=== PATIENT | male | born 1990 ===

== ENCOUNTER 2016-07-13 20:57 | Observation (INO) | payer OTHER ==
[2016-07-13] MEDS ORDERED: Sodium Chloride 0.9% 1,000 ML IV STA (21:32)
--- NOTE | 2016-07-13 21:52 | ED PDOC ---
HPI: CCC, URI, Sore Throat Chief Complaint (Provider): Nose Bleed History Per: Patient History/Exam Limitations: no limitations Have you had recent travel within the past 21 days to any of the following countries: [place], [place], [place] or [place]?: No Onset/Duration Of Symptoms: Mins (20 minutes before arrival) Current Symptoms Are (Timing): Still Present Location Of Pain: None Sick Contacts (Context): None Associated Symptoms: Vomiting, Diarrhea, Other (shortness of breath & Fatigue). denies: Fever, Chills, Sore Throat, Cough, Sputum, Neck Pain, Sinus Drainage, Myalgias, Nasal Congestion, Nausea <Omkar Cabrera - Last Filed: 07/13/16 23:04> <Dotty Vazquez - Last Filed: 07/14/16 18:57> Time Seen by Provider: 07/13/16 21:12 Chief Complaint (Nursing): ENT Problem Additional Complaint(s): 26 y.o. male with complaint of nose bleed occurring shortly before arrival to the E.D. PtDemarcus bahena was at working at the [employer] 20 minutes ago when his nose started bleeding suddenly from the right side. He then went to the bathroom to stop the bleeding and also noticed 1 episode of blood in the urine described as reddish urine. PtDemarcus bahena works at [employer] and was there at 11:00 this morning but did not feel well felt tired and left at 1:00 to go home and rest he then subsequently went back to work at 7:00pm but then again at approximately 9:00 p.m. felt tired and short of breath then subsequently had the episode of nose bleed. No previous episodes reported. Pt. denies any drug use. Pt. does admit to having one beer and 2 shots of whiskey today. Pt. denies any FMHx of bleeding disorders. (Omkar Cabrera) Supervising Attending Note <Omkar Cabrera - Last Filed: 07/13/16 23:04> - Supervising Attending Note The Documented history was done by the: Physician Diesel Powerplant Mechanic Helper, Attending Physician The documented physical exam was done by the: Physician Diesel Powerplant Mechanic Helper, Attending Physician - Attestation: I have personally seen and examined this patient.: Yes I have fully participated in the care of the patient.: Yes I have reviewed all pertinent clinical information, including history, physical exam and plan: Yes <Dotty Vazquez - Last Filed: 07/14/16 18:57> - Notes: Notes:: Chronic alcoholic with multiple sites of spontaneous bleeding, and deranged coags/LFTs. Also tremors and tachycardia c/w alcohol withdrawal. Pt will be hospitalized for further management. LEVI Gonzales. (Dotty Vazquez) Past Medical History - Medical History PMH: No Chronic Diseases - Surgical History Surgical History: No Surg Hx - Family History Family History: States: No Known Family Hx - Living Arrangements Living Arrangements: With Friends/Others (Roommate) - Social History Current smoker - smoking cessation education provided: No Alcohol: > 2 Drinks/Day Drugs: Denies - Immunization History Hx Tetanus Toxoid Vaccination: No <Omkar Cabrera - Last Filed: 07/13/16 23:04> <Dotty Vazquez - Last Filed: 07/14/16 18:57> Vital Signs: Last Vital Signs Temp 98.1 F 07/14/16 16:00 Pulse 113 H 07/14/16 16:20 Resp 18 07/14/16 16:00 BP 161/94 H 07/14/16 16:20 Pulse Ox 96 07/14/16 16:00 - Home Medications Home Medications: Ambulatory Orders Medication Instructions Recorded No Known Home Med 07/13/16 - Allergies Allergies/Adverse Reactions: Allergies Allergy/AdvReac Type Severity Reaction Status Date / Time No Known Allergies Allergy Verified 07/13/16 23:31 Curb-65 Severity Score - CURB-65 Severity Score Confusion: No Bun >19mg/dl (>7mmol/L): No Respiratory Rate greater than/equal to 30: No Systolic BP <90 or Diastolic BP less than/equal 60mmHg: No Age >64: No Curb-65 Score: 0 Percentage 30-day mortality: 0.6% <Omkar Cabrera - Last Filed: 07/13/16 23:04> Review of Systems Constitutional: Positive for: Sweats, Weakness. Negative for: Fever, Chills, Malaise, Weight loss Eyes: Negative for: Pain, Vision Change, Conjunctivae Inflammation ENT: Negative for: Ear Pain, Ear Discharge, Nose Pain, Nose Discharge Cardiovascular: Negative for: Chest Pain, Palpitations, Orthopnea, Paroxysmal Noc. Dyspnea Respiratory: Positive for: Other (1x episode of shortness of breath not associated with exertion shortly before arrival). Negative for: Cough, Shortness of Breath, Hemoptysis, SOB with Exertion, Pleuritic Pain, Sputum, Wheezing Gastrointestinal: Negative for: Nausea, Vomiting, Abdominal Pain, Diarrhea Genitourinary Male: Positive for: Hematuria (1 episode shortly before arrival). Negative for: Dysuria, Frequency, Incontinence, Penile Discharge, Scrotal Pain , Rash, Penile Pain Musculoskeletal: Negative for: Neck Pain, Shoulder Pain, Arm Pain, Back Pain Skin: Negative for: Rash, Lesions, Jaundice Neurological: Negative for: Weakness, Numbness, Incoordination, Change in Speech Psych: Negative for: Anxiety, Depression <Omkar Cabrera - Last Filed: 07/13/16 23:04> Physical Exam - Reviewed Vital Signs Reviewed: Yes - Physical Exam Appears: Positive for: Non-toxic, Uncomfortable (ETOH on breath) Head Exam: Positive for: ATRAUMATIC, NORMOCEPHALIC Skin: Positive for: Normal Color (appearrs flushed), Warm, Dry Eye Exam: Positive for: Normal appearance, PERRL ENT: Positive for: Other (Negative for nasal perforation, nasal polyp, or active bleeding at this time). Negative for: Pharyngeal Erythema, Tonsillar Swelling Neck: Positive for: Painless ROM, Supple Cardiovascular/Chest: Positive for: Tachycardia. Negative for: Murmur Respiratory: Positive for: Normal Breath Sounds. Negative for: Crackles, Wheezing, Respiratory Distress Gastrointestinal/Abdominal: Positive for: Soft, Other (Stretch beckman noted on abdomen). Negative for: Tenderness Back: Negative for: L CVA Tenderness, R CVA Tenderness Extremity: Negative for: Tenderness, Pedal Edema Neurologic/Psych: Positive for: Alert, Oriented (x3) <Omkar Cabrera - Last Filed: 07/13/16 23:04> - Laboratory Results Result Diagrams: 07/13/16 22:05 07/13/16 22:05 - ECG O2 Sat by Pulse Oximetry: 97 - Progress Re-evaluation Time: 23:02 Condition: Unchanged <Omkar Cabrera - Last Filed: 07/13/16 23:04> - Laboratory Results Result Diagrams: 07/14/16 06:30 07/14/16 06:30 <Dotty Vazquez - Last Filed: 07/14/16 18:57> - Progress ED Course And Treament: CBC, CMP, PT/INR, PTT, Type & Screen, UA, UDS, EKG I.V. Fluids N.S. Lipase, ABG, D5 NS with Thiamine, Folate, and Potassium (Omkar Cabrera) Medical Decision Making <Omkar Cabrera - Last Filed: 07/13/16 23:04> <Dotty Vazquez - Last Filed: 07/14/16 18:57> Medical Decision Makin y.o. male with no significant PMHx but Significant drinking history present to E.D. with complaint of nasal bleeding found to have Alcoholic Keto-acidosis. (Omkar Cabrera) Disposition - Patient ED Disposition Is Patient to be Admitted: Yes Discussed With : Dotty Vazquez - Disposition Disposition Time: 23:02 <Omkar Cabrera - Last Filed: 07/13/16 23:04> <Dotty Vazquez - Last Filed: 07/14/16 18:57> - Clinical Impression Clinical Impression: Alcoholic ketoacidosis - Disposition Condition: GUARDED
[2016-07-13] MEDS ORDERED: Multivitamin (MVI) 10 ML, Thiamine 100 MG, Folic Acid 1 MG in Sodium Chloride 0.9% 1,00... IV ONE (22:07)
[2016-07-13 22:23] LABS: BASO # 0.1 K/uL (0.0-0.2); BASO % 1.2 % (0.0-2.0); EOS % 0.3 % (0.0-4.0); HEMATOCRIT 41.8 % (35.0-51.0); LYMPH # 1.5 K/uL (1.0-4.3); MEAN CELL VOLUME 100.2 fl (80.0-94.0); MEAN CORPUSCULAR HGB CONC 33.9 g/dL (33.0-37.0); MEAN PLATELET VOLUME 9.5 fl (7.2-11.7); MONO % 8.2 % (0.0-10.0); NEUT # 9.1 K/uL (1.8-7.0); NEUT % 77.3 % (50.0-75.0); NRBC % 0.1 % (0.0-0.0); RED CELL DISTRIBUTION WIDTH 13.6 % (11.5-14.5); WHITE BLOOD COUNT 11.8 K/uL (4.8-10.8)
[2016-07-13 22:33] LABS: ALB/GLOB RATIO 0.7 (1.0-2.1); ALCOHOL SERUM 108 mg/dl (0-10); ALKALINE PHOSPHATASE 146 U/L (38-126); ALT/SGPT 119 U/L (21-72); AST/SGOT 252 U/L (17-59); BILIRUBIN,TOTAL 1.3 mg/dl (0.2-1.3); BLOOD UREA NITROGEN 4 mg/dl (9-20); CALCIUM 8.8 mg/dL (8.4-10.2); CARBON DIOXIDE 24 mmol/L (22-30); CHLORIDE 101 mmol/L (98-107); GFR AFRICAN-AMERICAN > 60; GLUCOSE,RANDOM 292 mg/dL (75-110); POTASSIUM 3.4 MMOL/L (3.6-5.0); SODIUM 139 mmol/l (132-148)
[2016-07-13 22:41] LABS: PARTIAL THROMBOPLASTIN TIME 31.7 SECONDS (23.3-32.5)
[2016-07-13 22:51] LABS: ABG ALLEN TEST YES; ARTERIAL BLOOD GAS HCO3 25.2 mmol/L (21-28); ARTERIAL BLOOD GAS O2 CAPACITY 18.5 mL/dL (16-24); ARTERIAL BLOOD GAS O2 CONTENT 17.8 ML/dL (15-23); ARTERIAL BLOOD GAS PH 7.44 (7.35-7.45); ARTERIAL BLOOD GAS PO2 64 mm/Hg (80-100); ARTERIAL BLOOD HGB O2 SAT 91.1 % (95.0-98.0); CARBOXYHEMOGLOBIN 3.1 % (0.5-1.5); HHB 3.5 % (0.0-5.0); METHEMOGLOBIN 2.3 % (0.0-3.0)
[2016-07-13 23:18] LABS: RBC URINE 339 /hpf (0-3); URINE BACTERIA RARE (<OCC); URINE BILIRUBIN SMALL (NEGATIVE); URINE BLOOD LARGE (NEGATIVE); URINE COLOR AMBER (YELLOW); URINE GLUCOSE (UA) >=500 mg/dL (Normal); URINE KETONE NEGATIVE (NEGATIVE); URINE LEUKOCYTE ESTERASE NEG Leu/uL (Negative); URINE PROTEIN >=500 mg/dL (NEGATIVE); WBC URINE < 1 /hpf (0-5)
--- NOTE | 2016-07-14 00:03 | CP.PCM.HP ---
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 He comes with 3 days of intermittent nose bleed. On the day of admission the epistaxis from the right nostril began while he was walking, at his job, and ceased while in the ED, at the same time he also had an episodes of red urine. this occurred again in the ED. He referred mild dizziness and SOB before the epistaxis. No headaches, dizziness, Vomiting, nausea, nasal congestion, upper respiratory tract symptoms nor trauma. No hx of HTN nor coagulopathy. In The ED he was noticed to be tachycardic with Tremors. PMH: No Chronic Diseases PSH: No Surgical Hx SH: Works at a bar; Drinks at least 8 shots daily, Has had tremors in the past when not drinking; Rare Cigarette use; Rare Marjuana use; Live Alone FH: Diabetes Mellitus Allergies: NKDA Present on Admission - Present on Admission Any Indicators Present on Admission: No History of DVT/PE: No History of Uncontrolled Diabetes: No Urinary Catheter: No Decubitus Ulcer Present: No Review of Systems - Constitutional Constitutional: absent: Anorexia, Chills, Fatigue, Fever, Headache - EENT Eyes: absent: Diplopia, Floaters, Photophobia, Requires Corrective Lenses, Sees Flashes Ears: absent: Decreased Hearing, Ear Discharge, Ear Pain, Tinnitus Nose/Mouth/Throat: Epistaxis. absent: Nose Pain, Sinus Pain, Sinus Pressure - Cardiovascular Cardiovascular: Dyspnea. absent: Chest Pain, Edema - Respiratory Respiratory: Dyspnea. absent: Cough, Wheezing, Stridor - Gastrointestinal Gastrointestinal: absent: Abdominal Pain, Constipation, Diarrhea, Nausea, Vomiting - Genitourinary Genitourinary: Hematuria. absent: Flank Pain, Urinary Frequency, Freq UTI - Musculoskeletal Musculoskeletal: Back Pain. absent: Muscle Weakness, Myalgias, Stiffness - Integumentary Integumentary: Striae. absent: Pruritus, Rash, Skin Ulcer, Sores, Swelling - Neurological Neurological: absent: Confusion, Convulsions, Dizziness, Focal Weakness - Psychiatric Psychiatric: absent: Anxiety, Depression, Panic Attacks - Endocrine Endocrine: Palpitations. absent: Polydipsia, Polyphagia, Polyuria - Hematologic/Lymphatic Hematologic: absent: Easy Bruising Past Patient History - Past Social History Smoking Status: rare Chewing Tobacco Use: No Cigar Use: No Alcohol: > 2 Drinks/Day Drugs: Cannabis Home Situation {Lives}: Alone - CARDIAC Hx Cardiac Disorders: No - PULMONARY Hx Respiratory Disorders: No - NEUROLOGICAL Hx Neurological Disorder: No - HEENT Hx HEENT Problems: No - RENAL Hx Chronic Kidney Disease: No - ENDOCRINE/METABOLIC Hx Endocrine Disorders: No - HEMATOLOGICAL/ONCOLOGICAL Hx Blood Disorders: No - INTEGUMENTARY Hx Dermatological Problems: No - MUSCULOSKELETAL/RHEUMATOLOGICAL Hx Musculoskeletal Disorders: No - GASTROINTESTINAL Hx Gastrointestinal Disorders: No - GENITOURINARY/GYNECOLOGICAL Hx Genitourinary Disorders: No - PSYCHIATRIC Hx Psychophysiologic Disorder: No Hx Substance Use: No - SURGICAL HISTORY Hx Surgeries: No - ANESTHESIA Hx Anesthesia: No Meds Allergies/Adverse Reactions: Allergies Allergy/AdvReac Type Severity Reaction Status Date / Time No Known Allergies Allergy Verified 07/13/16 23:31 Physical Exam - Constitutional Appears: No Acute Distress - Head Exam Head Exam: ATRAUMATIC, NORMAL INSPECTION, NORMOCEPHALIC - Eye Exam Eye Exam: EOMI, Normal appearance Pupil Exam: NORMAL ACCOMODATION, PERRL - ENT Exam ENT Exam: Mucous Membranes Moist, Normal Exam, Normal External Ear Exam, Normal Oropharynx - Neck Exam Neck exam: Positive for: Full Rom, Normal Inspection. Negative for: Lymphadenopathy, Tenderness - Respiratory Exam Respiratory Exam: Clear to Auscultation Bilateral. absent: Rales, Rhonchi, Wheezes - Cardiovascular Exam Cardiovascular Exam: Tachycardia, +S1, +S2. absent: Gallop, JVD - GI/Abdominal Exam GI & Abdominal Exam: Soft Additional comments: Abdomen obese, Non tender, +ve bowel sounds, liver appears 4 finger breath below the right rib cage Abdominal wall Striae - Rectal Exam Rectal Exam: Deferred - Extremities Exam Extremities exam: Positive for: full ROM, normal inspection. Negative for: calf tenderness, joint swelling, pedal edema - Back Exam Back exam: NORMAL INSPECTION. absent: CVA tenderness (L), CVA tenderness (R) - Neurological Exam Neurological exam: Alert, CN II-XII Intact, Oriented x3, Reflexes Normal - Psychiatric Exam Psychiatric exam: Normal Affect, Normal Mood - Skin Skin Exam: Dry, Intact, Normal Color, Warm Additional comments: Striae on the lower abdominal wall bilaterally. Results - Vital Signs Recent Vital Signs: Last Vital Signs Temp 98.1 F 07/13/16 21:02 Pulse 127 H 07/13/16 21:02 Resp 22 07/13/16 21:02 BP 161/105 H 07/13/16 21:02 Pulse Ox 97 07/13/16 23:04 - Labs Result Diagrams: 07/13/16 22:05 07/13/16 22:05 Labs: Laboratory Results - last 24 hr 07/13/16 07/13/16 07/13/16 22:05 22:05 22:05 WBC 11.8 H RBC 4.17 L Hgb 14.2 Hct 41.8 MCV 100.2 H MCH 34.0 H MCHC 33.9 RDW 13.6 Plt Count 187 MPV 9.5 Neut % (Auto) 77.3 H Lymph % (Auto) 13.0 L Milam % (Auto) 8.2 Eos % (Auto) 0.3 Baso % (Auto) 1.2 Neut # 9.1 H Lymph # 1.5 Milam # 1.0 H Eos # 0.0 Baso # 0.1 PT 12.5 H INR 1.20 H APTT 31.7 pCO2 pO2 HCO3 ABG pH ABG Total CO2 ABG O2 Saturation ABG O2 Content ABG Base Excess ABG Hemoglobin ABG Carboxyhemoglobin POC ABG HHb (Measured) ABG Methemoglobin ABG O2 Capacity Jeremiah Test A-a O2 Difference Hgb O2 Saturation FiO2 Sodium 139 Potassium 3.4 L Chloride 101 Carbon Dioxide 24 Anion Gap 17 BUN 4 L Creatinine 0.5 L Est GFR ( Amer) > 60 Est GFR (Non-Af Amer) > 60 Random Glucose 292 H Calcium 8.8 Total Bilirubin 1.3 AST 252 H ALT 119 H Alkaline Phosphatase 146 H Total Protein 10.0 H Albumin 3.9 Globulin 6.0 H Albumin/Globulin Ratio 0.7 L Lipase Urine Color Urine Clarity Urine pH Ur Specific [place] Urine Protein Urine Glucose (UA) Urine Ketones Urine Blood Urine Nitrate Urine Bilirubin Urine Urobilinogen Ur Leukocyte Esterase Urine RBC (Auto) Urine Microscopic WBC Urine Bacteria Urine Opiates Screen Urine Methadone Screen Ur Barbiturates Screen Ur Phencyclidine Scrn Ur Amphetamines Screen U Benzodiazepines Scrn U Oth Cocaine Metabols U Cannabinoids Screen Alcohol, Quantitative 108 H 07/13/16 07/13/16 07/13/16 22:05 22:45 22:50 WBC RBC Hgb Hct MCV MCH MCHC RDW Plt Count MPV Neut % (Auto) Lymph % (Auto) Milam % (Auto) Eos % (Auto) Baso % (Auto) Neut # Lymph # Milam # Eos # Baso # PT INR APTT pCO2 36 pO2 64 L HCO3 25.2 ABG pH 7.44 ABG Total CO2 25.6 ABG O2 Saturation 96.3 ABG O2 Content 17.8 ABG Base Excess 0.6 ABG Hemoglobin 13.9 ABG Carboxyhemoglobin 3.1 H POC ABG HHb (Measured) 3.5 ABG Methemoglobin 2.3 ABG O2 Capacity 18.5 Jeremiah Test Yes A-a O2 Difference 41.0 Hgb O2 Saturation 91.1 L FiO2 21.0 Sodium Potassium Chloride Carbon Dioxide Anion Gap BUN Creatinine Est GFR ( Amer) Est GFR (Non-Af Amer) Random Glucose Calcium Total Bilirubin AST ALT Alkaline Phosphatase Total Protein Albumin Globulin Albumin/Globulin Ratio Lipase Urine Color Yadira Urine Clarity Cloudy Urine pH 7.0 Ur Specific [place] 1.027 Urine Protein >=500 Urine Glucose (UA) >=500 Urine Ketones Negative Urine Blood Large Urine Nitrate Negative Urine Bilirubin Small Urine Urobilinogen 2.0 Ur Leukocyte Esterase Neg Urine RBC (Auto) 339 H Urine Microscopic WBC < 1 Urine Bacteria Rare Urine Opiates Screen Negative Urine Methadone Screen Negative Ur Barbiturates Screen Negative Ur Phencyclidine Scrn Negative Ur Amphetamines Screen Negative U Benzodiazepines Scrn Negative U Oth Cocaine Metabols Negative U Cannabinoids Screen Negative Alcohol, Quantitative 07/13/16 22:53 WBC RBC Hgb Hct MCV MCH MCHC RDW Plt Count MPV Neut % (Auto) Lymph % (Auto) Milam % (Auto) Eos % (Auto) Baso % (Auto) Neut # Lymph # Milam # Eos # Baso # PT INR APTT pCO2 pO2 HCO3 ABG pH ABG Total CO2 ABG O2 Saturation ABG O2 Content ABG Base Excess ABG Hemoglobin ABG Carboxyhemoglobin POC ABG HHb (Measured) ABG Methemoglobin ABG O2 Capacity Jeremiah Test A-a O2 Difference Hgb O2 Saturation FiO2 Sodium Potassium Chloride Carbon Dioxide Anion Gap BUN Creatinine Est GFR ( Amer) Est GFR (Non-Af Amer) Random Glucose Calcium Total Bilirubin AST ALT Alkaline Phosphatase Total Protein Albumin Globulin Albumin/Globulin Ratio Lipase 205 Urine Color Urine Clarity Urine pH Ur Specific [place] Urine Protein Urine Glucose (UA) Urine Ketones Urine Blood Urine Nitrate Urine Bilirubin Urine Urobilinogen Ur Leukocyte Esterase Urine RBC (Auto) Urine Microscopic WBC Urine Bacteria Urine Opiates Screen Urine Methadone Screen Ur Barbiturates Screen Ur Phencyclidine Scrn Ur Amphetamines Screen U Benzodiazepines Scrn U Oth Cocaine Metabols U Cannabinoids Screen Alcohol, Quantitative - EKG Data EKG comments: Sinus Tachycardia 126/min With QS waves in III and aVf Assessment & Plan - Assessment and Plan (Free Text) Assessment: #. Alcohol withdrawal; #. Hematuria #. Epistaxis #. HypokalemiaHyperglycemia #. 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 He comes with 3 days of intermittent nose bleed. On the day of admission the epistaxis from the right nostril began while he was walking, at his job, and ceased while in the ED, at the same time he also had an episodes of red urine. #. Alcohol withdrawal in patient with Tremors, elevated blood pressure and tachycardiac although he only drank one Beer an done Shot of Alcohol today and an Alcohol level of 108 - A Banana bag with Thiamine/ folic acid and multivitamine started in ED. Continue with Oral Thiamine/ Folic Acid and MV in The morning - Librium 25mg Po Q 8hrs and Ativan 1mg IV PRN for Agitation - IV Fluids #. Hematuria etiology unclear. No evidence for a Glomerulonephroitis - follow repeated Urinalysis - Renal Ultrasound r/o Poly cystic kidney etc - Consult with Urology Dr Stewart #. Epistaxis. No evidence for Coagulopathy. cause could be Hypertension - No bleeding at present - Controlled BP #. Hypokalemia - Repleated - Maintenance Potassium in IV fluid - Follow Electrolytes #. Hyperglycemia with family hx of DM - Diabetic Diet - Follow HbA1c and Treat As DM if elevated #. Transaminitis most likely due to Alcohol liver disease and Fatty liver -liver US - Hepatitis profile - Follow LFT #. DVT prophylaxis with SCD #. Code Status: Full - Date & Time Date: 07/14/16 Time: 00:03
[2016-07-14] MEDS ORDERED: Potassium Chloride 20 mEq ER Tab PO ONE ×2 (01:10→01:40)
[2016-07-14] MEDS: Potassium Chl 20 mEq in NS 1,000 ML IV SCH ×2 (03:15→12:19)
[2016-07-14 07:32] LABS: HEMATOCRIT 38.6 % (35.0-51.0); MEAN CELL VOLUME 99.6 fl (80.0-94.0); MEAN CORPUSCULAR HGB CONC 34.1 g/dL (33.0-37.0); RED CELL DISTRIBUTION WIDTH 13.5 % (11.5-14.5); WHITE BLOOD COUNT 11.4 K/uL (4.8-10.8)
[2016-07-14 07:50] LABS: ALB/GLOB RATIO 0.6 (1.0-2.1); ALKALINE PHOSPHATASE 129 U/L (38-126); ALT/SGPT 108 U/L (21-72); AST/SGOT 207 U/L (17-59); BILIRUBIN,TOTAL 1.9 mg/dl (0.2-1.3); BLOOD UREA NITROGEN 4 mg/dl (9-20); CALCIUM 8.2 mg/dL (8.4-10.2); CARBON DIOXIDE 24 mmol/L (22-30); CHLORIDE 101 mmol/L (98-107); GFR AFRICAN-AMERICAN > 60; GLUCOSE,RANDOM 174 mg/dL (75-110); POTASSIUM 3.4 MMOL/L (3.6-5.0); SODIUM 136 mmol/l (132-148); TOTAL PROTEIN 9.2 G/DL (6.3-8.2)
[2016-07-14 08:43] LABS: RBC URINE 89 /hpf (0-3); URINE BACTERIA RARE (<OCC); URINE BILIRUBIN NEGATIVE (NEGATIVE); URINE BLOOD LARGE (NEGATIVE); URINE COLOR YELLOW (YELLOW); URINE GLUCOSE (UA) NEG (Normal); URINE KETONE NEGATIVE (NEGATIVE); URINE LEUKOCYTE ESTERASE NEG Leu/uL (Negative); URINE PROTEIN 30 mg/dL (NEGATIVE); WBC URINE 17 /hpf (0-5)
[2016-07-14] MEDS: Multivitamin With Minerals Tab PO SCH (09:08)
--- NOTE | 2016-07-14 09:53 | RAD ---
HISTORY: Elevated White Count, ETOH abuse, Aspiration PNA COMPARISON: No prior. TECHNIQUE: Chest PA and lateral FINDINGS: LUNGS: No active pulmonary disease. PLEURA: No significant pleural effusion identified. No pneumothorax apparent. CARDIOVASCULAR: Normal. OSSEOUS STRUCTURES: No significant abnormalities. VISUALIZED UPPER ABDOMEN: Normal. OTHER FINDINGS: None. IMPRESSION: No active disease.
--- NOTE | 2016-07-14 09:55 | CP.PCM.PN ---
Subjective - Date & Time of Evaluation Date of Evaluation: 07/14/16 Time of Evaluation: 10:00 - Subjective Subjective: Patient seen and examined bedside. Feeling better. Tachycardic on monitor with HR 114 , afebrile, not tremulous,AAOx3 . Denies any epistaxis or hematuria. Admits to heavy ETOH intake. Objective - Vital Signs/Intake and Output Vital Signs (last 24 hours): Temp Pulse Resp BP Pulse Ox 98.0 F 119 H 20 154/93 H 97 07/14/16 08:17 07/14/16 09:08 07/14/16 08:17 07/14/16 09:08 07/14/16 08:17 - Medications Medications: Current Medications Acetaminophen (Tylenol 325mg Tab) 650 mg PO Q6 PRN PRN Reason: Other Chlordiazepoxide (Librium) 25 mg PO Q8 [facility] Last Admin: 07/14/16 09:11 Dose: 25 mg Clonidine HCl (Catapres) 0.1 mg PO BID [facility] Last Admin: 07/14/16 09:08 Dose: 0.1 mg Folic Acid (Folic Acid) 1 mg PO DAILY [facility] Last Admin: 07/14/16 09:08 Dose: 1 mg Potassium Chloride/Sodium Chloride (Potassium Chl 20 Meq In Ns) 1,000 mls @ 99.01 mls/hr IV .Q10H6M [facility] Stop: 07/15/16 01:13 Last Admin: 07/14/16 03:15 Dose: 99.01 mls/hr Lorazepam (Ativan) 1 mg IVP Q6 PRN PRN Reason: Agitation Last Admin: 07/14/16 03:13 Dose: 1 mg Multivitamins/Minerals (Therapeutic-M Tab) 1 tab PO DAILY [facility] Last Admin: 07/14/16 09:08 Dose: 1 tab Ondansetron HCl (Zofran Inj) 4 mg IVP Q6 PRN PRN Reason: Nausea/Vomiting Thiamine HCl (Vitamin B1 Tab) 100 mg PO DAILY [facility] Last Admin: 07/14/16 09:09 Dose: 100 mg - Labs Labs: 07/14/16 06:30 07/14/16 06:30 PT 12.5 SECONDS (9.6-11.2) H 07/13/16 22:05 INR 1.20 (0.92-1.08) H 07/13/16 22:05 APTT 31.7 SECONDS (23.3-32.5) 07/13/16 22:05 - Constitutional Appears: Non-toxic, No Acute Distress - Head Exam Head Exam: ATRAUMATIC, NORMAL INSPECTION, NORMOCEPHALIC - Eye Exam Eye Exam: EOMI, Normal appearance, PERRL Pupil Exam: NORMAL ACCOMODATION - ENT Exam ENT Exam: Mucous Membranes Moist, Normal Exam - Neck Exam Neck Exam: Full ROM, Normal Inspection - Respiratory Exam Respiratory Exam: Clear to Ausculation Bilateral, NORMAL BREATHING PATTERN. absent: Rales, Rhonchi, Wheezes - Cardiovascular Exam Cardiovascular Exam: Tachycardia, +S1, +S2. absent: JVD - GI/Abdominal Exam GI & Abdominal Exam: Soft, Normal Bowel Sounds. absent: Guarding, Tenderness, Rebound - Rectal Exam Rectal Exam: Deferred - Extremities Exam Extremities Exam: Full ROM, Normal Capillary Refill, Normal Inspection. 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 came to Er because was not feeling well , feeling tremulous and with episode of epistaxis that lasted like 15 minutes.He gave hx of Epistaxis on and off for 4 months.He also had an episodes of red urine. 1.Chronic alcoholism with withdrawal symptoms ETOH levels 108 on admission tachycardic on monitor Continue banana bag with Thiamine/ folic acid and MVI Continue Librium 25mg Po Q 8hrs and Ativan 1mg IV PRN for Agitation counselled on ETOH abuse F/u lever US Will need detox. Patient can go to [facility] ER and ask for detox SW to provide information about detox programs in community 2.Hematuria unclear etiology UAwith blood and RBC urology consulted F/u urogram 3. Epistaxis. No bleeding at present No evidence for Coagulopathy. possibly caused by Hypertension ENt eval as outpatient 4.Hypokalemia Repleated 5. Hyperglycemia with family hx of DM Diabetic Diet Follow HbA1c 6. Transaminitis most likely due to Alcohol liver disease and Fatty liver f/u liver US and Hepatitis profile 7. Elevated CPK suspected rhabdomyelysis Continue IV fluids 8. DVT prophylaxis SCD
--- NOTE | 2016-07-14 10:22 | CARD ---
APPROVED REPORT EKG Measurement Heart [id number] <Conclusion> Sinus tachycardia Moderate voltage criteria for LVH, may be normal variant ??Inferior infarct, age undetermined Abnormal ECG (Please repeat to confirm)
[2016-07-14] MEDS ORDERED: Multivitamin (MVI) 10 ML, Thiamine 100 MG, Folic Acid 1 MG in Sodium Chloride 0.9% 1,00... IV ONE (12:33)
[2016-07-14] MEDS: Sodium Chloride 0.9% 1,000 ML IV SCH (13:00)
[2016-07-14] MEDS ORDERED: Chlorhexidine Gluconate 1 APPL/PKT TP ONE (14:09)
[2016-07-14] MEDS ORDERED: Sodium Chloride 0.9% 50 ML IV ONE (14:34)
[2016-07-14] MEDS ORDERED: Iohexol 300 100 ML IJ ONE (14:34)
--- NOTE | 2016-07-14 15:50 | CT ---
PROCEDURE: CT Abdomen and Pelvis with contrast HISTORY: Hematuria COMPARISON: None. TECHNIQUE: Contrast dose: 100 cc of Omnipaque 300 Radiation dose: Total exam DLP = 3540 mGy-cm. This CT exam was performed using one or more of the following dose reduction techniques: Automated exposure control, adjustment of the mA and/or kV according to patient size, and/or use of iterative reconstruction technique. FINDINGS: LOWER THORAX: Unremarkable. LIVER: Diffuse fatty infiltration of the liver. GALLBLADDER AND BILE DUCTS: Unremarkable. PANCREAS: Unremarkable. No gross lesion or ductal dilatation. SPLEEN: Unremarkable. ADRENALS: Unremarkable. No mass. KIDNEYS AND URETERS: Unremarkable. No hydronephrosis. No solid mass. VASCULATURE: Unremarkable. No aortic aneurysm. BOWEL: Unremarkable. No obstruction. No gross mural thickening. APPENDIX: Normal appendix. PERITONEUM: Unremarkable. No free fluid. No free air. LYMPH NODES: Unremarkable. No enlarged lymph nodes. BLADDER: Unremarkable. REPRODUCTIVE: Unremarkable. BONES: No acute fracture. OTHER FINDINGS: None. IMPRESSION: Fatty infiltration of the liver. Otherwise normal exam.
--- NOTE | 2016-07-14 19:15 | CON ---
DATE: 07/14/2016 TIME OF CONSULTATION: Roughly 2:30 p.m. 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 and after consuming some alcohol became weak and developed a nosebleed and also noticed that his urine became the color of apple juice, which he has never had before. This alerted him to go to the [facility] Emergency Room for evaluation. The patient's main complaint was generalized weakness and a nosebleed which stopped after 10 minutes. He denies any prior history of any kidney disease or kidney stones. He currently denies any history of any gross hematuria, renal colic, dysuria or abdominal pain. He has no family history of any cancer. SOCIAL HISTORY: He has a very rare history of tobacco use, no more than 2 times per month. He does have a history of increased alcohol use. ALLERGIES: He has no known allergies to any medications. PAST SURGICAL HISTORY: No prior surgical history. PHYSICAL EXAMINATION: GENERAL: He is a well-developed, well-nourished, slightly obese male. He is alert. He is oriented. HEENT: Grossly within normal limits. NECK: Supple. Thyroid not palpable. ABDOMEN: Soft, not distended or tender. No CVA tenderness. No suprapubic tenderness. No abdominal scars visualized. GENITALIA: He is noncircumcised with normal glans meatus without any rashes or lesions visualized. Testes are down bilaterally, nontender, without any masses. No inguinal hernias or lymph nodes are palpated. RECTAL: Normal rectal tone without fluctuance or masses. Prostate is average size, smooth, symmetrical, nontender without nodules or indurations with a palpable median sulcus. VITAL SIGNS: Today, his temperature is 98.8, pulse rate is 117, blood pressure is 153/94, respiratory rate is 20 and his O2 sat on room air is 97%. LABORATORY EVALUATION: In the Emergency Room on 07/13/2016, CBC was 11.8, hemoglobin of 14.2, hematocrit of 41.8 with a platelet count of 187,000. His current CBC today, 07/14/2016, shows his WBC count relatively the same around 11.4, hemoglobin of 13.2, minimally changed from admission and his hematocrit 38.6. His platelet count is 167,000. His coag profile showed a PT of 12.5 and INR of 1.20, which was slightly elevated, possibly secondary to alcohol intake. His PTT is 31.7. His sodium today 07/14/2016 was 136, potassium 3.4, chloride 101, CO2 of 24, BUN and creatinine of 4 and 0.5 respectively with a GFR of greater than 60. His random glucose was 174. Calcium 8.2. Total bilirubin 1.9. His AST was 207, ALT 108, alkaline phosphatase 129. His total creatinine kinase was 1404, which was elevated. His lipase on admission was 205. His urinalysis on admission 07/13/2016, the color was miki, clarity was cloudy, pH was 7.0, specific gravity 1.027, protein was greater than 500, ketones were negative, blood was large, nitrite was negative, bilirubin was small, leukocyte esterase was negative. There were 339 RBC's, less than 1 WBC and rare bacteria per high power field. Follow up urinalysis today 07/14/2016 showed the color was yellow, clarity was clear, pH was 7.0, specific gravity 1.015, protein was 30, which is markedly improved with IV hydration. Glucose was negative, ketones was negative, blood was large, nitrite was negative, bilirubin was negative, urobilinogen was 2.0, leukocyte esterase was negative. There were decreased RBC's per high power field at 89 compared to admission and there was 17 WBC's per high-power field with rare bacteria consistent with possible urinary tract infection. The patient is currently being scheduled for a CT urogram today. If the CT urogram is negative, the patient can be seen in office followup regarding his microscopic hematuria within 2 weeks. Also, as part of the history, the patient denies any history of any trauma or sudden falls during this episode or any injuries including sports injuries. Serg Stewart MD cc: [phone] TT: 07/14/2016 19:15:02 Confirmation # [id number] Dictation # [id number] fabricio KOO
[2016-07-15] MEDS: Sodium Chloride 0.9% 1,000 ML IV SCH ×2 (04:12→09:10)
[2016-07-15 06:25] LABS: HEMATOCRIT 41.6 % (35.0-51.0); MEAN CELL VOLUME 101.4 fl (80.0-94.0); MEAN CORPUSCULAR HEMOGLOBIN 34.2 pg (27.0-31.0); MEAN CORPUSCULAR HGB CONC 33.7 g/dL (33.0-37.0); RED CELL DISTRIBUTION WIDTH 13.8 % (11.5-14.5); WHITE BLOOD COUNT 8.8 K/uL (4.8-10.8)
[2016-07-15 07:34] LABS: ALB/GLOB RATIO 0.6 (1.0-2.1); ALKALINE PHOSPHATASE 134 U/L (38-126); ALT/SGPT 91 U/L (21-72); AST/SGOT 147 U/L (17-59); BILIRUBIN,TOTAL 2.6 mg/dl (0.2-1.3); BLOOD UREA NITROGEN 4 mg/dl (9-20); CARBON DIOXIDE 24 mmol/L (22-30); CHLORIDE 101 mmol/L (98-107); GFR AFRICAN-AMERICAN > 60; GLUCOSE,RANDOM 192 mg/dL (75-110); POTASSIUM 4.1 MMOL/L (3.6-5.0); SODIUM 137 mmol/l (132-148); TOTAL PROTEIN 9.5 G/DL (6.3-8.2)
[2016-07-15 07:58] VITALS: RESP 18; O2SAT 97
[2016-07-15] MEDS: Multivitamin With Minerals Tab PO SCH (09:10)
--- NOTE | 2016-07-15 11:56 | CP.PCM.DIS ---
Provider - Provider Date of Admission: 07/14/16 00:02 Attending physician: Lazaro Gonzales Primary care physician: None Consults: none Time Spent in preparation of Discharge (in minutes): 20 Hospital Course - Lab Results Lab Results: Most Recent Lab Values WBC 8.8 K/uL (4.8-10.8) 07/15/16 05:30 RBC 4.10 Mil/uL (4.40-5.90) L 07/15/16 05:30 Hgb 14.0 g/dL (12.0-18.0) 07/15/16 05:30 Hct 41.6 % (35.0-51.0) 07/15/16 05:30 MCV 101.4 fl (80.0-94.0) H 07/15/16 05:30 MCH 34.2 pg (27.0-31.0) H 07/15/16 05:30 MCHC 33.7 g/dL (33.0-37.0) 07/15/16 05:30 RDW 13.8 % (11.5-14.5) 07/15/16 05:30 Plt Count 152 K/uL (130-400) 07/15/16 05:30 MPV 9.5 fl (7.2-11.7) 07/13/16 22:05 Neut % (Auto) 77.3 % (50.0-75.0) H 07/13/16 22:05 Lymph % (Auto) 13.0 % (20.0-40.0) L 07/13/16 22:05 Pershing % (Auto) 8.2 % (0.0-10.0) 07/13/16 22:05 Eos % (Auto) 0.3 % (0.0-4.0) 07/13/16 22:05 Baso % (Auto) 1.2 % (0.0-2.0) 07/13/16 22:05 Neut # 9.1 K/uL (1.8-7.0) H 07/13/16 22:05 Lymph # 1.5 K/uL (1.0-4.3) 07/13/16 22:05 Pershing # 1.0 K/uL (0.0-0.8) H 07/13/16 22:05 Eos # 0.0 K/uL (0.0-0.7) 07/13/16 22:05 Baso # 0.1 K/uL (0.0-0.2) 07/13/16 22:05 PT 12.5 SECONDS (9.6-11.2) H 07/13/16 22:05 INR 1.20 (0.92-1.08) H 07/13/16 22:05 APTT 31.7 SECONDS (23.3-32.5) 07/13/16 22:05 pCO2 36 mm/Hg (35-45) 07/13/16 22:45 pO2 64 mm/Hg (80-100) L 07/13/16 22:45 HCO3 25.2 mmol/L (21-28) 07/13/16 22:45 ABG pH 7.44 (7.35-7.45) 07/13/16 22:45 ABG Total CO2 25.6 mmol/L (22-28) 07/13/16 22:45 ABG O2 Saturation 96.3 % (95-98) 07/13/16 22:45 ABG O2 Content 17.8 ML/dL (15-23) 07/13/16 22:45 ABG Base Excess 0.6 mmol/L (-2.0-3.0) 07/13/16 22:45 ABG Hemoglobin 13.9 g/dL (11.7-17.4) 07/13/16 22:45 ABG Carboxyhemoglobin 3.1 % (0.5-1.5) H 07/13/16 22:45 POC ABG HHb (Measured) 3.5 % (0.0-5.0) 07/13/16 22:45 ABG Methemoglobin 2.3 % (0.0-3.0) 07/13/16 22:45 ABG O2 Capacity 18.5 mL/dL (16-24) 07/13/16 22:45 Jeremiah Test Yes 07/13/16 22:45 A-a O2 Difference 41.0 mm/Hg 07/13/16 22:45 Hgb O2 Saturation 91.1 % (95.0-98.0) L 07/13/16 22:45 FiO2 21.0 % 07/13/16 22:45 Sodium 137 mmol/l (132-148) 07/15/16 05:30 Potassium 4.1 MMOL/L (3.6-5.0) 07/15/16 05:30 Chloride 101 mmol/L (98-107) 07/15/16 05:30 Carbon Dioxide 24 mmol/L (22-30) 07/15/16 05:30 Anion Gap 16 (10-20) 07/15/16 05:30 BUN 4 mg/dl (9-20) L 07/15/16 05:30 Creatinine 0.5 mg/dL (0.8-1.5) L 07/15/16 05:30 Est GFR ( Amer) > 60 07/15/16 05:30 Est GFR (Non-Af Amer) > 60 07/15/16 05:30 Random Glucose 192 mg/dL (75-110) H 07/15/16 05:30 Hemoglobin A1c 9.6 % (4.2-6.5) H 07/14/16 06:30 Calcium 9.0 mg/dL (8.4-10.2) 07/15/16 05:30 Total Bilirubin 2.6 mg/dl (0.2-1.3) H 07/15/16 05:30 AST 147 U/L (17-59) H D 07/15/16 05:30 ALT 91 U/L (21-72) H 07/15/16 05:30 Alkaline Phosphatase 134 U/L (38-126) H 07/15/16 05:30 Total Creatine Kinase 745 U/L (55-170) H 07/15/16 05:30 Troponin I < 0.0120 ng/mL (0.00-0.120) 07/14/16 01:50 Total Protein 9.5 G/DL (6.3-8.2) H 07/15/16 05:30 Albumin 3.7 g/dL (3.5-5.0) 07/15/16 05:30 Globulin 5.8 gm/dL (2.2-3.9) H 07/15/16 05:30 Albumin/Globulin Ratio 0.6 (1.0-2.1) L 07/15/16 05:30 Lipase 205 U/L (23-300) 07/13/16 22:53 Urine Color Yellow (YELLOW) 07/14/16 07:40 Urine Clarity Clear (Clear) 07/14/16 07:40 Urine pH 7.0 (5.0-8.0) 07/14/16 07:40 Ur Specific [place] 1.015 (1.003-1.030) 07/14/16 07:40 Urine Protein 30 mg/dL (NEGATIVE) 07/14/16 07:40 Urine Glucose (UA) Neg mg/dL (Normal) 07/14/16 07:40 Urine Ketones Negative mg/dL (NEGATIVE) 07/14/16 07:40 Urine Blood Large (NEGATIVE) 07/14/16 07:40 Urine Nitrate Negative (NEGATIVE) 07/14/16 07:40 Urine Bilirubin Negative (NEGATIVE) 07/14/16 07:40 Urine Urobilinogen 2.0 mg/dL (0.2-1.0) 07/14/16 07:40 Ur Leukocyte Esterase Neg [place]/uL (Negative) 07/14/16 07:40 Urine RBC (Auto) 89 /hpf (0-3) H 07/14/16 07:40 Urine Microscopic WBC 17 /hpf (0-5) H 07/14/16 07:40 Urine Bacteria Rare (<OCC) 07/14/16 07:40 Urine Opiates Screen Negative (NEGATIVE) 07/13/16 22:05 Urine Methadone Screen Negative (NEGATIVE) 07/13/16 22:05 Ur Barbiturates Screen Negative (NEGATIVE) 07/13/16 22:05 Ur Phencyclidine Scrn Negative (NEGATIVE) 07/13/16 22:05 Ur Amphetamines Screen Negative (NEGATIVE) 07/13/16 22:05 U Benzodiazepines Scrn Negative (NEGATIVE) 07/13/16 22:05 U Oth Cocaine Metabols Negative (NEGATIVE) 07/13/16 22:05 U Cannabinoids Screen Negative (NEGATIVE) 07/13/16 22:05 Alcohol, Quantitative 108 mg/dl (0-10) H 07/13/16 22:05 Hepatitis A IgM Ab Negative (NEGATIVE) 07/14/16 06:30 Hep Bs Antigen Negative (NEGATIVE) 07/14/16 06:30 Hep B Core IgM Ab Negative (NEGATIVE) 07/14/16 06:30 Hepatitis C Antibody Negative (NEGATIVE) 07/14/16 06:30 HIV 1&2 Antibody Screen Negative (NEGATIVE) 07/14/16 06:30 Blood Type A POSITIVE 07/13/16 22:05 Blood Type Confirm A POSITIVE 07/14/16 03:06 Antibody Screen Negative 07/13/16 22:05 BBK History Checked No verified bt 07/13/16 22:05 - Hospital Course Hospital Course: 26 years old male with no PMH 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 Came to Er because was not feeling well , feeling tremulous and with episode of epistaxis that lasted like 15 minutes.He gave hx of Epistaxis on and off for 4 months.He also had an episodes of red urine.He wsa placed under observation for Chronic alcoholism and withdrawal symptoms and hematuria. He was placed in telemetry for close monitoring, started on Thiamine , folic acid, MVI, IVF , librium and Ativan PRN.LFT-s were elevated and liver US showed fatty liver.Hepatitis profile was negative .He was started on Clonidine for better BP control and for withdrawal symptoms Patient counselled on ETOH abuse and provided information on detox programs in community as well as inpatient detox program at [facility] ' He was noticed to have microscopic hematuria and elevated CPK but denied any trauma Urology was consulted. CT urogram showed no acute pathology . Advised patient to follow up with urologist if hematuria reoccurs His Epistaxis resolved. Advised to follow up with ENT as outpatient if it happens again. Patient at present is hemodynamically stable, afebrile, denies any CP, SOB, palpitations, abdominal pain , nayuse a, vomiting. His HR ranging 100 -110 , asymptomatic and not tremulous AAOx3 .Strated on low dose of coreg Counselled patient on ETOH abuse Will discharge home with follow up with [facility] 1.Chronic alcoholism with withdrawal symptoms ETOH levels 108 on admission tachycardic on monitor. Not tremulous , BP controlled , AAOx3 Given banana bag with Thiamine ,folic acid and MVI Started tapering Librium counselled on ETOH abuse Liver US showed fatty liver Provided information on detox programs in community 2.Hematuria unclear etiology , microscopic Ct urogram showed no acute pathology urology consulted and cleared patient for discharge Keep hydrated Follow up with urologist as out patient if hematuria reoccurs 3. Epistaxis. - resolved No bleeding at present No evidence for Coagulopathy. possibly caused by Hypertension ENt eval as outpatient 4.Hypokalemia Repleted 5. DM type II Diabetic Diet HgbA1c 9.6 Patient to follow up with [facility] Start Glucotrol XL 10 mg 6. Transaminitis most likely due to Alcohol liver disease and Fatty liver Hepatitis profile is negative 7. Elevated CPK suspected rhabdomyelysis Given IV fluids 8. DVT prophylaxis SCD Discharge Exam - Head Exam Head Exam: ATRAUMATIC, NORMAL INSPECTION, NORMOCEPHALIC Discharge Plan - Discharge Medications Prescriptions: Carvedilol [Coreg] 3.125 mg PO BID #60 tab chlordiazePOXIDE [Librium] 25 mg PO Q8 #3 cap cloNIDine [Catapres] 0.1 mg PO BID #60 tab Folic Acid 1 mg PO DAILY #30 tab Multimineral/Multivitamin [Therapeutic-M Tab] 1 tab PO DAILY #30 tab Thiamine [Vitamin B1 Tab] 100 mg PO DAILY #30 tab - Follow Up Plan Condition: GUARDED Disposition: HOME/ ROUTINE Instructions: Alcohol Withdrawal (DC), Alcohol Dependence (GEN), Alcohol Use Disorder (DC) Referrals: at [place] [Outside]
[2016-07-15 12:06] VITALS: BP 140/76; PULSE 116; TEMP 99
--- NOTE | 2016-07-15 12:27 | US ---
HISTORY: Elevated liver enzymes/ Hematuria COMPARISON: None. TECHNIQUE: Sonographic evaluation of the abdomen. FINDINGS: LIVER: Measures 23 cm. Heterogeneous echogenicity of the liver parenchyma. No mass. No intrahepatic bile duct dilatation. GALLBLADDER: Unremarkable. No gallstones. COMMON BILE DUCT: Measures mm. No stones. No dilatation. PANCREAS: Unremarkable as visualized. No mass. No ductal dilatation. RIGHT KIDNEY: Measures cm. Normal echogenicity. No calculus, mass, or hydronephrosis. LEFT KIDNEY: Measures cm. Normal echogenicity. No calculus, mass, or hydronephrosis. SPLEEN: Normal in size and contour. No mass. AORTA: No aneurysmal dilatation. IVC: Unremarkable. OTHER FINDINGS: None. IMPRESSION: Hepatomegaly with heterogeneous liver parenchyma compatible fibrous/fatty infiltration.
== END 2016-07-15 15:00 | disposition home or self-care (01) ==
LOC: H.ER 20:57 → H.ERHOLD 07-14 00:02 → H.TEL 07-14 02:02
PROVIDERS: ADMIT Internal Medicine; ATTEND Internal Medicine
DX: F10.239 Alcohol dependence with withdrawal, unspecified (principal); F10.229 Alcohol dependence with intoxication, unspecified; Y90.5 Blood alcohol level of 100-119 mg/100 ml; E87.2 Acidosis; E87.6 Hypokalemia; R04.0 Epistaxis; R31.29 Other microscopic hematuria; K70.0 Alcoholic fatty liver; E11.65 Type 2 diabetes mellitus with hyperglycemia; Z72.0 Tobacco use